=== PATIENT | female | born 1975 | race African-American/Black ===

== ENCOUNTER 2017-12-12 10:09 | Emergency (ER) | payer OTHER | END 2017-12-12 12:45 | disposition home or self-care (01) | LOC: JER 10:09 | CPT/HCPCS: 36415; 80053; 81003; 81015; 84703; 85025; 87086; 99282-25 ==

== ENCOUNTER 2017-12-24 21:44 | Emergency (ER) | payer OTHER ==
[2017-12-24 21:58] VITALS: TEMP 98.1; BMI 33.4
[2017-12-24] MEDS ORDERED: FAMOTIDINE 20 MG/50 ML IVPB 20 MG/50 ML MG IVPB ONE ×3 (22:24→23:18)
[2017-12-24] MEDS ORDERED: methylPREDNISolone NA SUCC 125 MG/2 ML VIAL IVPB ONE (22:24)
[2017-12-24] MEDS ORDERED: SODIUM CHLORIDE 0.9% 500 ML INFUS.BAG IV ONE (22:25)
--- NOTE | 2017-12-24 22:29 | PDOC ---
History of Present Illness - General History Source: Patient Exam Limitations: No Limitations - History of Present Illness Initial Comments: This is a 42 YOF with h/o HTN (started lisinopril 2 days ago) who p/w upper lip swelling since 5 pm today. She notes that the swelling was mild to begin with, but has become extreme over the past hour. She has not taken any medications for the symptoms. She has had similar lip swelling in the past (when she was not on any antihypertensives) but has never pinpointed what allergen has caused these episodes. The current episode is also much worse than any time in the past for her. She denies any throat closing, tongue swelling (she notes she has a large tongue at baseline and always has a lisp), skin itching, headache, dizziness, nausea, vomiting, diarrhea, abdominal pain, SOB, wheezing, chest pain , or any other symptoms. <Kanwal Sotomayor - Last Filed: 12/24/17 23:21> <Vick Interiano - Last Filed: 12/25/17 02:40> - General Chief Complaint: Allergic Reaction Stated Complaint: ALLERGIC REACTION Time Seen by Provider: 12/24/17 22:14 Past History - Past Medical History Asthma: Yes COPD: No Psychiatric Problems: Yes (depression) - Suicide/Smoking/Psychosocial Hx Smoking History: Current every day smoker Have you smoked in the past 12 months: Yes Number of Cigarettes Smoked Daily: 4 Cigars Per Day: 10 Information on smoking cessation initiated: No Hx Alcohol Use: No Drug/Substance Use Hx: No Substance Use Type: Alcohol <Kanwal Sotomayor - Last Filed: 12/24/17 23:21> <Vick Interiano - Last Filed: 12/25/17 02:40> - Past Medical History Allergies/Adverse Reactions: Allergies Allergy/AdvReac Type Severity Reaction Status Date / Time Fish Containing Products Allergy Verified 12/24/17 21:57 nut - unspecified Allergy Verified 12/24/17 21:57 Home Medications: Ambulatory Orders Cyclobenzaprine HCl [Flexeril -] 10 mg PO TID PRN 12/12/17 Ibuprofen [Motrin -] 600 mg PO TID #21 tablet 12/12/17 Oxycodone HCl 10 mg PO Q6H PRN 12/12/17 Diphenhydramine [Benadryl -] 50 mg PO Q4HWA #20 capsule 12/25/17 Epinephrine [Epipen 2-Dany] 0.3 mg IJ ASDIR #1 kit 12/25/17 Famotidine [Pepcid -] 20 mg PO BID #14 tablet 12/25/17 Review of Systems - Review of Systems Able to Perform ROS?: Yes Constitutional: No: Chills, Fever, Unexplained wgt Loss HEENTM: Yes: Other (upper lip swelling). No: Nose Congestion, Throat Pain Respiratory: No: Cough, Shortness of Breath Cardiac (ROS): No: Chest Pain, Palpitations ABD/GI: No: Constipated, Diarrhea, Nausea, Vomiting : No: Burning, Dysuria Musculoskeletal: No: Back Pain, Neck Pain Integumentary: No: Bruising, Rash Neurological: No: Headache, Numbness, Tingling, Weakness, Dizziness Endocrine: No: Unexplained Weight Gain, Unexplained Weight Loss <Kanwal Sotomayor - Last Filed: 12/24/17 23:21> *Physical Exam - Vital Signs Last Vital Signs Temp Pulse Resp BP Pulse Ox 98.1 F 74 20 144/92 99 12/24/17 21:55 12/24/17 21:55 12/24/17 21:55 12/24/17 21:55 12/24/17 21:55 <Kanwal Sotomayor - Last Filed: 12/24/17 23:21> - Vital Signs Last Vital Signs Temp Pulse Resp BP Pulse Ox 98.1 F 74 20 144/92 99 12/24/17 21:55 12/24/17 21:55 12/24/17 21:55 12/24/17 21:55 12/24/17 21:55 <Vick Interiano - Last Filed: 12/25/17 02:40> ED Treatment Course - Medications Given in the ED: ED Medications Discontinued Medications Generic Name Dose Route Start Last Admin Trade Name Freq PRN Reason Stop Dose Admin Acetaminophen 650 mg 12/25/17 01:29 12/25/17 01:31 Tylenol - PO 12/25/17 01:30 650 mg ONCE ONE Administration Dexamethasone Sodium Phosphate 10 mg 12/24/17 22:44 12/24/17 23:27 Decadron Injection - IVPUSH 12/24/17 22:45 10 mg ONCE ONE Administration Diphenhydramine HCl 50 mg 12/24/17 22:24 12/24/17 23:27 Benadryl Injection - IVPUSH 12/24/17 22:25 50 mg ONCE ONE Administration Famotidine/Sodium Chloride 20 mg in 50 mls @ 100 mls/hr 12/24/17 22:24 23:27 Pepcid 20 Mg Premixed Ivpb - IVPB 12/24/17 22:53 100 mls/hr ONCE ONE Administration Methylprednisolone Sodium Succinate 125 mg 12/24/17 22:24 12/24/17 22:57 Solu-Medrol - IVPB 12/24/17 22:25 Not Given ONCE ONE Sodium Chloride 1,000 ml 12/24/17 22:25 12/24/17 23:27 Normal Saline - IV 12/24/17 22:26 1,000 ml ONCE ONE Administration <Vick Interiano - Last Filed: 12/25/17 02:40> Medical Decision Making - Medical Decision Making Patient p/w facial swelling and pruritic rash after exposure. Initial Vital Signs Temp Pulse Resp BP Pulse Ox 98.1 F 74 20 144/92 99 12/24/17 21:55 12/24/17 21:55 12/24/17 21:55 12/24/17 21:55 12/24/17 21:55 Exam: Markedly edematous upper lip, otherwise normal examination DDX IBNLT: allergic reaction (most likely d/t starting lisinopril), insect bite/ sting, etc. W/U ordered: None at this time TX ordered: IV Pepcid, SoluMedrol, Benadryl, IVF. EKG: CXR: Labs: Repeat VS: Reassessment: ADMIT The patient is unsafe for discharge at this time. They require further hospital observation, workup, and treatment. Microblog sent to [facility] for admission. Spoke with [facility], in agreement patient to be admitted to: [id number] Decision to Admit order placed to [facility] covering attending. DISCHARGE Workup is not concerning for emergency-level pathology at this time. The patient is appropriate for discharge with close outpatient follow up. The patient is comfortable with this plan and will follow up with their PCP in 1 -3 days. They will follow up with their regular doctor in the next 1-3 days. Return precautions are discussed and they will come back to the ER if necessary. <Kanwal Sotomayor - Last Filed: 12/24/17 23:21> *DC/Admit/Observation/Transfer <Kanwal Sotomayor - Last Filed: 12/24/17 23:21> <Vick Interiano - Last Filed: 12/25/17 02:40> Diagnosis at time of Disposition: Angioedema due to angiotensin converting enzyme inhibitor (CARLI-I) - Discharge Dispostion Disposition: HOME Condition at time of disposition: Stable - Prescriptions Prescriptions: Diphenhydramine [Benadryl -] 50 mg PO Q4HWA #20 capsule Epinephrine [Epipen 2-Dany] 0.3 mg IJ ASDIR #1 kit Famotidine [Pepcid -] 20 mg PO BID #14 tablet - Referrals Referrals: pmd, three-4 days [Other] - Patient Instructions Printed Discharge Instructions: DI for Adverse Drug Reaction -- Allergic, DI for Angioedema
--- NOTE | 2017-12-24 22:42 | PDOC ---
Attending Attestation - HPI HPI: 12/25/17 00:26 The patient is a 42 year old female, with a significant past medical history of HTN, who presents to the emergency department with, 5 hours of worsening swelling to her upper lip. She reports that it has gotten significantly worse in the past hour. She has not taken anything for the swelling. She reports similar episodes less in severity in the past but, is unaware what triggered them. She denies any throat swelling. She denies recent fevers, chills, headache or dizziness. She denies recent nausea, vomit, diarrhea or constipation. She denies recent dysuria, frequency, urgency or hematuria. She denies recent chest pain or shortness of breath. Past surgical history: None reported. Social history: Nonsmoker. Denies EtOH use and recreational drug use. <Yenny Kang - Last Filed: 12/25/17 00:26> - Resident Resident Name: Kanwal Sotomayor - ED Attending Attestation I have performed the following: I have examined & evaluated the patient, The case was reviewed & discussed with the resident, I agree w/resident's findings & plan, Exceptions are as noted - Physicial Exam PE: 12/25/17 01:27 Patient is awake and alert, obese, in no respiratory distress Normocephalic and atraumatic PERRLA, EOMI + Extensive angioedema of the upper lip without lingual involvement; uvula is midline and is nonedematous No stridor, patient's able tolerate own secretions CTA RRR no rash - Medical Decision Making 12/25/17 01:28 Patient is a 42-year-old female with history of hypertension who presents with angioedema of the upper lip likely related to lisinopril therapy. No acute airway issues are present at this time. Patient is received Decadron, Benadryl and Pepcid. No indication for epinephrine therapy at this time. Will observe for improvement as well as rebound symptoms. Will reassess. 12/25/17 02:36 pt with improved angioedema. no airway issues. will administer additional benadryl . will cont to observe. likley discharge. <Vick Interiano - Last Filed: 12/25/17 02:37> Attestations - Attestations 12/25/17 00:26 Documentation prepared by Yenny Kang, acting as medical physicist for Vick Interiano MD. <Yenny Kang - Last Filed: 12/25/17 00:26>
[2017-12-24] MEDS ORDERED: DEXAMETHASONE SOD PHOSPHATE 10 MG/1 ML VIAL IVPUSH ONE (22:44)
[2017-12-24] MEDS ORDERED: DEXAMETHASONE SOD PHOSPHATE 10 MG/1 ML VIAL ONE (23:01)
[2017-12-25] MEDS ORDERED: ACETAMINOPHEN 325 MG TABLET (FP) ONE (00:48)
[2017-12-25] MEDS ORDERED: ACETAMINOPHEN 325 MG TABLET (FP) PO ONE (01:29)
[2017-12-25] MEDS ORDERED: diphenhydrAMINE HCL 25 MG CAPSULE (FP) PO ONE ×2 (02:37→02:54)
[2017-12-25 04:02] VITALS: BP 145/86; PULSE 78
== END 2017-12-25 04:47 | disposition home or self-care (01) ==
LOC: JER 21:44
PROC: 3E0333Z Introduction of Anti-inflammatory into Peripheral Vein, Percutaneous Approach (ICD-10-PCS; principal; 2017-12-24)
PROC: 3E033GC Introduction of Other Therapeutic Substance into Peripheral Vein, Percutaneous Approach (ICD-10-PCS; 2017-12-24)
PROC: 3E033GC Introduction of Other Therapeutic Substance into Peripheral Vein, Percutaneous Approach (ICD-10-PCS; 2017-12-24)
DX: T78.3XXA Angioneurotic edema, initial encounter (principal); T46.4X5A Adverse effect of angiotensin-converting-enzyme inhibitors, initial encounter; Y92.038 Other place in apartment as the place of occurrence of the external cause
CPT/HCPCS: 96374; 96375; 99281-25; J1100

== ENCOUNTER 2019-08-14 14:48 | Emergency (ER) | payer OTHER ==
[2019-08-14 14:58] VITALS: BP 130/82; PULSE 80; TEMP 98.7; BMI 36.5
[2019-08-14] MEDS ORDERED: ACETAMINOPHEN 500 MG TABLET (FP) PO ONE (14:58)
--- NOTE | 2019-08-14 14:58 | PDOC ---
Rapid Medical Evaluation Time Seen by Provider: 08/14/19 14:56 Medical Evaluation: Allergies Allergy/AdvReac Type Severity Reaction Status Date / Time Fish Containing Products Allergy Verified 12/24/17 21:57 nut - unspecified Allergy Verified 12/24/17 21:57 08/14/19 14:56 CC: body aches, cough, chills and sweating x3 days PE: OP- WNL. Lungs CTAB. Orders: tylenol Patient will proceed to ED for further evaluation. Discharge Disposition - Diagnosis URI (upper respiratory infection) - Referrals - Patient Instructions - Post Discharge Activity
[2019-08-14] MEDS ORDERED: IBUPROFEN 400 MG TABLET (FP) PO ONE ×2 (15:39→15:50)
--- NOTE | 2019-08-14 15:39 | PDOC ---
History of Present Illness - General Chief Complaint: Cold Symptoms Stated Complaint: SHORTNESS OF BREATH Time Seen by Provider: 08/14/19 14:56 History Source: Patient - History of Present Illness Timing/Duration: reports: other Past History - Past Medical History Allergies/Adverse Reactions: Allergies Allergy/AdvReac Type Severity Reaction Status Date / Time Fish Containing Products Allergy Verified 08/14/19 14:58 nut - unspecified Allergy Verified 08/14/19 14:58 Home Medications: Ambulatory Orders Cyclobenzaprine HCl [Flexeril -] 10 mg PO TID PRN 12/12/17 Ibuprofen [Motrin -] 600 mg PO TID #21 tablet 12/12/17 Oxycodone HCl 10 mg PO Q6H PRN 12/12/17 Diphenhydramine [Benadryl -] 50 mg PO Q4HWA #20 capsule 12/25/17 Epinephrine [Epipen 2-Dany] 0.3 mg IJ ASDIR #1 kit 12/25/17 Famotidine [Pepcid -] 20 mg PO BID #14 tablet 12/25/17 Ferrous Sulfate 325 mg PO DAILY #30 tablet 08/14/19 Polyethylene Glycol 3350 [Miralax (For Daily Use) -] 17 gm PO DAILY #1 bottle Asthma: Yes COPD: No Psychiatric Problems: Yes (depression) - Psycho Social/Smoking Cessation Hx Smoking History: Never smoked Have you smoked in the past 12 months: Yes Number of Cigarettes Smoked Daily: 4 Cigars Per Day: 10 Hx Alcohol Use: No Drug/Substance Use Hx: No Substance Use Type: Alcohol Review of Systems - Review of Systems Constitutional: Yes: Other (chronic fatigue). No: Chills, Fever Respiratory: Yes: Cough. No: Shortness of Breath, Wheezing Cardiac (ROS): No: Chest Pain *Physical Exam - Vital Signs Last Vital Signs Temp Pulse Resp BP Pulse Ox 98.7 F 80 18 130/82 100 08/14/19 14:54 08/14/19 14:54 08/14/19 14:54 08/14/19 14:54 08/14/19 14:54 - Physical Exam General Appearance: Yes: Appropriately Dressed. No: Apparent Distress HEENT: positive: Normal ENT Inspection, Normal Voice, TMs Normal, Pharynx Normal. negative: Scleral Icterus (R), Scleral Icterus (L) Neck: positive: Supple. negative: Lymphadenopathy (R), Lymphadenopathy (L) Respiratory/Chest: positive: Lungs Clear, Normal Breath Sounds. negative: Respiratory Distress Cardiovascular: positive: Regular Rate, S1, S2 Integumentary: positive: Dry, Warm Neurologic: positive: Fully Oriented, Alert, Normal Mood/Affect ED Treatment Course - LABORATORY CBC & Chemistry Diagram: 08/14/19 15:36 Medical Decision Making - Medical Decision Making 08/14/19 15:35 43-year-old female history of uterine fibroids s/p fibroid embolization surgery in 2019,, anemia, s/p blood transfusion x1, here with multiple complaints. Patient states she is really here for a mostly dry cough for 4 days with no hemoptysis, shortness of breath, chest pain fever or chills. States she has ongoing fatigue which she attributes to her anemia. Last saw her PMD for same about a month ago and told to start taking iron pill but states she stopped taking it at some point due to constipation. see exam Cough M/l viral Exam wnl No tob use Dc w/ supportive tx Chronic fatigue Endorses h/o fibroids, anemia (s/p 1 blood tx remotely-Hgb 10 in 2018 here), non -compliant w/ iron 2/2 constipation Stable here -cbc -anticipate dc w/ PMD f/u 08/14/19 17:02 Hemoglobin 9.3. Results discussed with patient and told that she needs to follow-up with her PMD this week for further management of her anemia. Also told that she should continue her iron pills at this time and to take miralax as needed to combat constipation Discharge - Discharge Information Problems reviewed: Yes Clinical Impression/Diagnosis: URI (upper respiratory infection) Qualifiers: URI type: unspecified viral URI Qualified Code(s): J06.9 - Acute upper respiratory infection, unspecified Anemia Qualifiers: Anemia type: unspecified type Qualified Code(s): D64.9 - Anemia, unspecified Condition: Good Disposition: HOME - Additional Discharge Information Prescriptions: Ferrous Sulfate 325 mg PO DAILY #30 tablet Polyethylene Glycol 3350 [Miralax (For Daily Use) -] 17 gm PO DAILY #1 bottle - Follow up/Referral Referrals: Carlos Enrique Schmidt MD [Primary Care Provider] - - Patient Discharge Instructions Patient Printed Discharge Instructions: Anemia Additional Instructions: Your hemoglobin was 9.3. You need to continue your iron pill with MiraLAX as needed you are welcome your PMD this week for further management of your anemia - Post Discharge Activity
[2019-08-14 16:36] LABS: BASO % 1.1 % (0-2.0); EOS % 1.7 % (0-4.5); HEMATOCRIT 31.6 % (32.4-45.2); HEMOGLOBIN 9.3 GM/dL (10.7-15.3); MCHC 29.6 g/dl (32.0-36.0); MEAN CELL VOLUME 65.8 fl (80-96); MEAN PLT VOLUME 9.1 fl (7.5-11.1); MONO % 6.4 % (3.8-10.2); NEUT % 68.8 % (42.8-82.8); PLATELET COUNT 231 K/MM3 (134-434); RDW 19.1 % (11.6-15.6)
[2019-08-14 16:57] LABS: MCH 19.5 pg (25.7-33.7)
[2019-08-14 18:33] LABS: ANISOCYTOSIS 2+; MACROCYTOSIS 1+; PLATELET ESTIMATE ADEQUATE; TARGET CELLS 1+
== END 2019-08-14 17:12 | disposition home or self-care (01) ==
LOC: JERFT 14:48
DX: J06.9 Acute upper respiratory infection, unspecified (principal); B97.89 Other viral agents as the cause of diseases classified elsewhere; D64.9 Anemia, unspecified; Z86.2 Personal history of diseases of the blood and blood-forming organs and certain disorders involving the immune mechanism; Z91.013 Allergy to seafood
CPT/HCPCS: 36415; 85025; 99281-25

== ENCOUNTER 2020-09-30 14:00 | Emergency (ER) | payer OTHER ==
[2020-09-30 14:28] VITALS: BP 126/65; PULSE 71; TEMP 98.2; BMI 39.8
[2020-09-30] MEDS ORDERED: METOCLOPRAMIDE HCL INJECTION 10 MG/2 ML VIAL IVPB ONE (15:23)
[2020-09-30] MEDS ORDERED: SODIUM CHLORIDE 0.9% 500 ML INFUS.BAG IV ONE (15:23)
[2020-09-30] MEDS ORDERED: METOCLOPRAMIDE HCL 10 MG TABLET (FP) PO ONE ×2 (16:15→17:07)
[2020-09-30 16:25] LABS: BASO % 0.7 % (0-2.0); EOS % 2.7 % (0-4.5); HEMATOCRIT 31.9 % (32.4-45.2); LYMPH % 25.3 % (8-40); MCH 23.3 pg (25.7-33.7); MCHC 31.5 g/dl (32.0-36.0); MEAN CELL VOLUME 73.9 fl (80-96); MEAN PLT VOLUME 9.1 fl (7.5-11.1); MONO % 9.6 % (3.8-10.2); NEUT % 61.7 % (42.8-82.8); PLATELET COUNT 264 K/MM3 (134-434); RBC 4.31 M/mm3 (3.60-5.2); RDW 19.1 % (11.6-15.6); WHITE BLOOD COUNT 5.2 K/mm3 (4.0-10.0)
[2020-09-30 16:42] LABS: CALCIUM 8.7 mg/dL (8.5-10.1)
[2020-09-30 16:43] LABS: ALBUMIN 3.7 g/dl (3.4-5.0); BLOOD UREA NITROGEN 16.7 mg/dL (7-18); CO2 27 mmol/L (21-32); GLUCOSE,RANDOM 102 mg/dL (74-106)
[2020-09-30 16:46] LABS: CREATININE 0.8 mg/dL (0.55-1.3); SGOT/AST 20 U/L (15-37)
[2020-09-30 16:48] LABS: BILIRUBIN,TOTAL 0.2 mg/dL (0.2-1); TOT PROT 7.4 g/dl (6.4-8.2)
[2020-09-30 16:49] LABS: ALK PHOS 75 U/L (45-117)
[2020-09-30 16:57] LABS: SGPT/ALT 25 U/L (13-61)
[2020-09-30 18:01] LABS: ANION GAP 8 MMOL/L (8-16); CHLORIDE 107 mmol/L (98-107); POTASSIUM 3.8 mmol/L (3.5-5.1); SODIUM 141 mmol/L (136-145)
== END 2020-09-30 18:50 | disposition home or self-care (01) ==
LOC: JER 14:00
DX: R07.9 Chest pain, unspecified (principal); M54.2 Cervicalgia; R51.9 Headache, unspecified
CPT/HCPCS: 36415; 71046-TC-FY; 80053; 82550; 84484; 84703; 85025; 93005; 93010; 99285-25

== ENCOUNTER 2021-01-05 14:45 | Emergency (ER) | payer OTHER ==
[2021-01-05 14:50] VITALS: BP 109/69; PULSE 78; TEMP 97; BMI 38.0
[2021-01-05] MEDS ORDERED: IBUPROFEN 600 MG TABLET (FP) PO ONE ×2 (14:54→15:23)
== END 2021-01-05 16:36 | disposition home or self-care (01) ==
LOC: JER 14:45 → JERFT 14:45
DX: M25.572 Pain in left ankle and joints of left foot (principal)
CPT/HCPCS: 73590-TC-LT-FY; 73610-TC-LT-FY; 73630-TC-LT; 99284-25

== ENCOUNTER 2021-02-16 22:37 | Emergency (ER) | payer OTHER ==
[2021-02-16 22:49] VITALS: TEMP 98.5; BMI 37.4
[2021-02-16] MEDS ORDERED: METOCLOPRAMIDE HCL 10 MG TABLET (FP) PO ONE ×2 (23:24→23:49)
[2021-02-16] MEDS ORDERED: ACETAMINOPHEN 500 MG TABLET (FP) PO ONE (23:24)
[2021-02-16] MEDS ORDERED: ACETAMINOPHEN 500 MG TABLET (FP) ONE (23:51)
[2021-02-17 00:23] LABS: BASO % 1.3 % (0-2.0); HEMATOCRIT 29.7 % (32.4-45.2); LYMPH % 30.6 % (8-40); MCH 20.6 pg (25.7-33.7); MCHC 30.2 g/dl (32.0-36.0); MEAN CELL VOLUME 68.3 fl (80-96); MEAN PLT VOLUME 8.5 fl (7.5-11.1); MONO % 6.6 % (3.8-10.2); NEUT % 59.5 % (42.8-82.8); PLATELET COUNT 273 10^3/uL (134-434); RBC 4.34 M/mm3 (3.60-5.2); WHITE BLOOD COUNT 5.9 K/mm3 (4.0-10.0)
[2021-02-17 00:53] LABS: CHLORIDE 105 mmol/L (98-107); SODIUM 140 mmol/L (136-145)
[2021-02-17 00:54] LABS: CALCIUM 8.2 mg/dL (8.5-10.1)
[2021-02-17 00:55] LABS: ALBUMIN 3.7 g/dl (3.4-5.0); ANION GAP 10 MMOL/L (8-16); BLOOD UREA NITROGEN 19.4 mg/dL (7-18); CO2 25 mmol/L (21-32); GLUCOSE,RANDOM 146 mg/dL (74-106)
[2021-02-17 00:58] LABS: CREATININE 0.9 mg/dL (0.55-1.3); SGOT/AST 26 U/L (15-37); SGPT/ALT 28 U/L (13-61)
[2021-02-17 01:00] LABS: BILIRUBIN,TOTAL 0.3 mg/dL (0.2-1); TOT PROT 7.3 g/dl (6.4-8.2)
[2021-02-17 01:01] LABS: ALK PHOS 72 U/L (45-117)
[2021-02-17 01:38] VITALS: BP 108/73; PULSE 69
[2021-02-17 06:06] LABS: ANISOCYTOSIS 2+
== END 2021-02-17 02:05 | disposition home or self-care (01) ==
LOC: JER 22:37
DX: R07.89 Other chest pain (principal)
CPT/HCPCS: 36415; 71046-TC-FY; 80053; 84484; 85025; 93005; 93010; 99284-25

== ENCOUNTER 2021-07-22 15:24 | Emergency (ER) | payer OTHER ==
[2021-07-22 16:40] VITALS: TEMP 98.3; BMI 37.4
[2021-07-22] MEDS ORDERED: KETOROLAC TROMETHAMINE 30 MG/1 ML VIAL IM ONE (17:36)
[2021-07-22] MEDS ORDERED: KETOROLAC TROMETHAMINE 30 MG/1 ML VIAL ONE (17:45)
[2021-07-22] MEDS ORDERED: ACETAMINOPHEN 325 MG TABLET (FP) PO ONE (21:22)
[2021-07-22] MEDS ORDERED: ACETAMINOPHEN 325 MG TABLET (FP) ONE (21:32)
[2021-07-22 22:40] VITALS: BP 128/88; PULSE 82
== END 2021-07-22 22:41 | disposition home or self-care (01) ==
LOC: JER 15:24
PROC: 3E0233Z Introduction of Anti-inflammatory into Muscle, Percutaneous Approach (ICD-10-PCS; principal; 2021-07-22)
DX: M54.50 Low back pain, unspecified (principal); M79.604 Pain in right leg; W01.0XXA Fall on same level from slipping, tripping and stumbling without subsequent striking against object, initial encounter
CPT/HCPCS: 72131-TC; 99284-25

== ENCOUNTER 2021-09-29 13:01 | Inpatient (IN) | payer OTHER ==
[2021-09-29 13:37] VITALS: BMI 34.9
[2021-09-29 15:00] LABS: BASO % 0.7 % (0-2.0); EOS % 3.3 % (0-4.5); HEMATOCRIT 24.4 % (32.4-45.2); HEMOGLOBIN 7.7 GM/dL (10.7-15.3); LYMPH % 14.5 % (8-40); MCH 21.6 pg (25.7-33.7); MCHC 31.4 g/dl (32.0-36.0); MEAN CELL VOLUME 68.9 fl (80-96); MEAN PLT VOLUME 8.8 fl (7.5-11.1); MONO % 8.2 % (3.8-10.2); NEUT % 73.3 % (42.8-82.8); PLATELET COUNT 220 10^3/uL (134-434); RBC 3.54 M/mm3 (3.60-5.2); RDW 18.5 % (11.6-15.6); WHITE BLOOD COUNT 7.5 K/mm3 (4.0-10.0)
[2021-09-29 15:04] LABS: CHLORIDE 104 mmol/L (98-107); SODIUM 141 mmol/L (136-145)
[2021-09-29 15:06] LABS: ANION GAP 8 MMOL/L (8-16); CALCIUM 8.4 mg/dL (8.5-10.1); CO2 29 mmol/L (21-32); GLUCOSE,RANDOM 117 mg/dL (74-106)
[2021-09-29 15:07] LABS: ALBUMIN 3.1 g/dl (3.4-5.0); BLOOD UREA NITROGEN 18.4 mg/dL (7-18)
[2021-09-29 15:09] LABS: SGPT/ALT 238 U/L (13-61)
[2021-09-29 15:10] LABS: CREATININE 0.9 mg/dL (0.55-1.3); SGOT/AST 121 U/L (15-37)
[2021-09-29 15:11] LABS: BILIRUBIN,TOTAL 0.4 mg/dL (0.2-1); TOT PROT 6.6 g/dl (6.4-8.2)
[2021-09-29 15:12] LABS: ALK PHOS 187 U/L (45-117)
[2021-09-29 15:16] LABS: INR 1.22 (0.83-1.09); PROTHROMBIN TIME (PATIENT) 14.1 SEC (9.7-13.0)
[2021-09-29] MEDS ORDERED: predniSONE 20 MG TABLET (UD) PO ONE (15:19)
[2021-09-29 15:27] LABS: ANISOCYTOSIS 2+; MACROCYTOSIS 0; PLATELET ESTIMATE NORMAL
[2021-09-29] MEDS ORDERED: predniSONE 20 MG TABLET (UD) ONE (15:42)
[2021-09-29] MEDS ORDERED: ASPIRIN 81 MG CHEWABLE TABLETS PO ONE (16:25)
[2021-09-29] MEDS ORDERED: HEPARIN NA (PORCINE) 5,000 UNITS/ML 1ML VIAL IVPUSH PRN ×2 (17:48)
[2021-09-29] MEDS ORDERED: HEPARIN NA (PORCINE) 5,000 UNITS/ML 1ML VIAL IVPUSH ONE (17:55)
[2021-09-29] MEDS ORDERED: HEPARIN NA (PORCINE) 5,000 UNITS/ML 1ML VIAL ONE (17:56)
[2021-09-29] MEDS ORDERED: HEPARIN INFUSION - 25,000 UNITS/500 ML INFUS.BAG IVPB ONE (17:57)
[2021-09-29 18:14] LABS: ACTIVATED PTT 23.4 SECONDS (25.2-36.5)
[2021-09-29] MEDS: HEPARIN INFUSION - 25,000 UNITS/500 ML INFUS.BAG IVPB SCH (18:32)
[2021-09-29 18:52] LABS: N-TERMINAL BNP 3226.2 pg/ml (5-125)
[2021-09-29] MEDS ORDERED: ALBUTEROL SO4 0.083% IH SOL 2.5 MG/3 ML VIAL.NEB. NEB PRN (19:50)
[2021-09-29 20:57] LABS: IRON SERUM 13 ug/dL (50-175); TOTAL IRON BINDING CAPACITY 379 ug/dL (250-450)
[2021-09-29] MEDS ORDERED: CHLORHEXIDINE GLUCONATE 4% CLEANSER FOR DECOLONIZATION TP SCH (22:00)
[2021-09-29] MEDS: diphenhydrAMINE HCL 25 MG CAPSULE (FP) PO PRN (22:22)
[2021-09-29] MEDS: BUDESONIDE/FORMETEROL FUMARATE 160/4.5 mcg INHALER IH SCH (22:23)
[2021-09-29] MEDS: MUPIROCIN 2% TOPICAL OINTMENT FOR DECOLONIZATION NS SCH (22:23)
[2021-09-30] MEDS: ACETAMINOPHEN 325 MG TABLET (FP) PO PRN ×3 (00:30→14:00)
[2021-09-30] MEDS: oxyCODONE HCL 5 MG TABLET PO PRN ×2 (00:58→06:40)
[2021-09-30 02:28] LABS: INR 1.22 (0.83-1.09); PROTHROMBIN TIME (PATIENT) 14.1 SEC (9.7-13.0)
[2021-09-30 02:29] LABS: ACTIVATED PTT 41.1 SECONDS (25.2-36.5)
[2021-09-30] MEDS ORDERED: HEPARIN NA (PORCINE) 5,000 UNITS/ML 1ML VIAL IVPUSH PRN ×2 (02:40→02:42)
[2021-09-30] MEDS: diphenhydrAMINE HCL 25 MG CAPSULE (FP) PO PRN (06:48)
[2021-09-30 06:58] LABS: BASO % 0.5 % (0-2.0); EOS % 3.8 % (0-4.5); HEMOGLOBIN 7.6 GM/dL (10.7-15.3); LYMPH % 18.7 % (8-40); MCH 21.3 pg (25.7-33.7); MCHC 30.3 g/dl (32.0-36.0); MEAN CELL VOLUME 70.3 fl (80-96); MEAN PLT VOLUME 9.2 fl (7.5-11.1); MONO % 10.4 % (3.8-10.2); NEUT % 66.6 % (42.8-82.8); PLATELET COUNT 223 10^3/uL (134-434); RBC 3.56 M/mm3 (3.60-5.2); RDW 18.8 % (11.6-15.6); WHITE BLOOD COUNT 8.2 K/mm3 (4.0-10.0)
[2021-09-30 07:51] LABS: CALCIUM 8.1 mg/dL (8.5-10.1)
[2021-09-30 07:52] LABS: BLOOD UREA NITROGEN 17.7 mg/dL (7-18)
[2021-09-30 07:55] LABS: MAGNESIUM 2.2 mg/dL (1.8-2.4)
[2021-09-30 07:57] LABS: BILIRUBIN,TOTAL 0.3 mg/dL (0.2-1); TOT PROT 6.4 g/dl (6.4-8.2)
[2021-09-30 07:59] LABS: CREATININE 0.8 mg/dL (0.55-1.3)
[2021-09-30] MEDS ORDERED: POTASSIUM CHLORIDE ORAL LIQUID 20 MEQ/15 ML PO ONE (09:30)
[2021-09-30] MEDS ORDERED: HYDROCHLOROTHIAZIDE 25 MG TABLET (FP) PO SCH (10:00)
[2021-09-30] MEDS ORDERED: POLYETHYLENE GLYCOL (HEALTHYLAX) 3350 17 GM PACKET PO SCH (10:00)
[2021-09-30] MEDS: BUDESONIDE/FORMETEROL FUMARATE 160/4.5 mcg INHALER IH SCH (10:39)
[2021-09-30] MEDS: MUPIROCIN 2% TOPICAL OINTMENT FOR DECOLONIZATION NS SCH (10:39)
[2021-09-30 12:38] LABS: INR 1.15 (0.83-1.09); PROTHROMBIN TIME (PATIENT) 13.3 SEC (9.7-13.0)
[2021-09-30 12:41] LABS: ACTIVATED PTT 38.5 SECONDS (25.2-36.5)
[2021-09-30 12:58] VITALS: PULSE 65
[2021-09-30] MEDS: HEPARIN INFUSION - 25,000 UNITS/500 ML INFUS.BAG IVPB SCH (13:11)
[2021-09-30 14:31] VITALS: BP 105/75
[2021-09-30 14:56] VITALS: TEMP 98.1
== END 2021-09-30 14:42 | disposition short-term general hospital (02) | DRG 134 ==
LOC: JER 13:01 → JERBED 18:13 → JICU 21:18
PROVIDERS: ADMIT Internal Medicine Pulmonary Disease; ATTEND Internal Medicine Pulmonary Disease
DX: I26.09 Other pulmonary embolism with acute cor pulmonale (principal); I10 Essential (primary) hypertension; I51.7 Cardiomegaly; J45.909 Unspecified asthma, uncomplicated
CPT/HCPCS: 36415; 71045-TC-FY; 71275-TC; 80053; 82728; 83540; 83550; 83735; 83880; 84484; 84703; 85025; 85610; 85730; 86850; 86900; 86901; 93005; 93010; 93306-TC; 93970-TC; 99285-25; C9803; J1644; Q9967; U0003; U0005

== ENCOUNTER 2023-12-10 21:07 | Emergency (ER) | payer OTHER ==
[2023-12-10 21:13] VITALS: BP 108/65; PULSE 78; RESP 20; TEMP 98.8; BMI 38.0
[2023-12-10 23:05] LABS: BASO % 0.5 % (0-2.0); EOS % 2.4 % (0-4.5); HEMATOCRIT 34.1 % (32.4-45.2); HEMOGLOBIN 11.1 GM/dL (10.7-15.3); LYMPH % 33.5 % (8-40); MCHC 32.6 g/dl (32.0-36.0); MEAN CELL VOLUME 79.8 fl (80-96); MEAN PLT VOLUME 7.9 fl (7.5-11.1); MONO % 7.4 % (3.8-10.2); NEUT % 56.2 % (42.8-82.8); PLATELET COUNT 370 10^3/uL (134-434); RBC 4.27 M/mm3 (3.60-5.2); RDW 14.8 % (11.6-15.6); WHITE BLOOD COUNT 7.1 K/mm3 (4.0-10.0)
[2023-12-10 23:12] LABS: INR 1.44 (0.83-1.09); PROTHROMBIN TIME (PATIENT) 16.1 SEC (9.7-13.0)
[2023-12-10 23:16] LABS: ACTIVATED PTT 36.5 SECONDS (25.2-36.5)
[2023-12-10 23:28] LABS: ANION GAP 10 mmol/L (4-13); CALCIUM 9.3 mg/dL (8.5-10.1); CHLORIDE 107 mmol/L (98-107); CO2 26 mmol/L (21-32); GLUCOSE,RANDOM 98 mg/dL (74-106); POTASSIUM 3.1 mmol/L (3.5-5.1); SODIUM 143 mmol/L (136-145)
[2023-12-10 23:31] LABS: SGOT/AST 36 U/L (15-37); SGPT/ALT 33 U/L (13-61)
[2023-12-10 23:32] LABS: TOT PROT 7.9 g/dl (6.4-8.2)
[2023-12-10 23:33] LABS: ALK PHOS 84 U/L (45-117); BILIRUBIN,TOTAL 0.4 mg/dL (0.2-1)
[2023-12-10] MEDS ORDERED: POTASSIUM CHLORIDE TABS 20 MEQ TABLET.ER (FP) PO ONE (23:55)
[2023-12-11] MEDS: POTASSIUM CHLORIDE TABS 20 MEQ TABLET.ER (FP) PO ONE (00:04)
== END 2023-12-11 03:04 | disposition home or self-care (01) ==
LOC: JER 21:07 → UNDOADMIN 12-11 00:46 → JERBED 12-11 00:46 → JER 12-11 03:04
DX: R00.2 Palpitations (principal); E87.6 Hypokalemia
CPT/HCPCS: 36415; 71046-TC-FY; 80053; 80307; 83880; 84484; 84703; 85025; 85379; 85610; 85730; 86850; 86900; 86901; 93005; 93010; 99285-25

== ENCOUNTER 2023-12-11 06:08 | Emergency (ER) | payer OTHER ==
[2023-12-11 06:25] VITALS: BP 106/72; PULSE 75; RESP 18; TEMP 98; BMI 38.0
[2023-12-11 09:24] LABS: POTASSIUM 3.8 mmol/L (3.5-5.1)
[2023-12-11 09:26] LABS: BLOOD UREA NITROGEN 21.6 mg/dL (7-18); MAGNESIUM 2.6 mg/dL (1.8-2.4)
== END 2023-12-11 10:52 | disposition home or self-care (01) ==
LOC: JER 06:08
DX: I45.81 Long QT syndrome (principal); E87.6 Hypokalemia
CPT/HCPCS: 36415; 80048; 83735; 93005; 93010; 99284-25